=== PATIENT | female | born 1990 | race African-American/Black ===

== ENCOUNTER 2019-01-27 19:12 | Emergency (ER) | payer OTHER ==
[~2019-01-27] VITALS: Ht 157.5 cm; Wt 78.0 kg
[2019-01-27] MEDS ORDERED: ONDANSETRON HCL 4MG/2ML INJ IV STA (22:58)
[2019-01-27 23:21] VITALS: BP 100/72
== END 2019-01-27 23:22 | disposition home or self-care (01) ==
LOC: ER 19:12
DX: K52.9 Noninfective gastroenteritis and colitis, unspecified (principal); R07.9 Chest pain, unspecified
CPT/HCPCS: 81025; 93005; 99283; Z7610